=== PATIENT | male | born 1985 | race Caucasian/White ===

== ENCOUNTER 2016-10-20 19:17 | Emergency (ER) | payer SELFPAY ==
[~2016-10-20] VITALS: Ht 180.3 cm; Wt 96.4 kg
[~2016-10-20 19:17] MED LIST: IBUP800T23 PO; PERC5TAB12 PO; TAMS0.4C67 PO
[2016-10-20 19:28] VITALS: BP 135/77; PULSE 93; RESP 16; TEMP 98.9; O2SAT 98
[2016-10-20] MEDS ORDERED: SODIUM CHLORIDE 0.9% FLUSH 10 ML FLUSH IV FLUSH PRN (20:45)
[2016-10-20] MEDS ORDERED: KETOROLAC TROMETHAMINE 30 MG/ML (IVP) VIAL IV PUSH ONE (20:45)
--- NOTE | 2016-10-20 20:49 | PD ---
HPI Chief Complaint: Musculoskeletal Complaint Time Seen by Provider: 20:36 Travel History International Travel<30 days: No Contact w/Intl Traveler<30days: No Traveled to known affect area: No History of Present Illness HPI 31-year-old male here for evaluation of left neck pain and left arm numbness. The patient reports that the symptoms have been going on for the last week. He states he was seen at an outpatient urgent care facility and was prescribed a muscle relaxer, however he has not had any relief of symptoms. He denies any known trauma. 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 He denies left upper extremity weakness or loss of strength. No fevers or chills. No IVDU. Patient also mentioned that over the last week he has had 3 syncopal episodes. 2 of these episodes occurred while at work, and one while driving. He states that these episodes are preceded by a prodrome of nausea, blurry vision, and tunnel vision. He has no known history of cardiac disease. He states his father may have a cardiac history, but he is unsure what it is. PFSH Past Medical History Hx Anticoagulant Therapy: No Cardiovascular Problems: No Chemotherapy: No Cerebrovascular Accident: No Diabetes: No Diminished Hearing: No Kidney Stones: Yes Respiratory: No Immunizations Current: No Past Surgical History Hysterectomy: No Social History Alcohol Use: Yes (SOCIALLY) Tobacco Use: Yes (1PPD) Substance Use: No Allergies-Medications (Allergen,Severity, Reaction): Coded Allergies: No Known Allergies (Unverified , 10/20/16) Reported Meds & Prescriptions Reported Meds & Active Scripts Active Review of Systems Except as stated in HPI: all other systems reviewed are Neg Physical Exam Narrative GENERAL: Well-developed, well-nourished, comfortable, no apparent distress. SKIN: Focused skin assessment warm/dry. No rash. HEAD: Atraumatic. Normocephalic. EYES: Pupils equal and round. No scleral icterus. No injection or drainage. ENT: Mucous membranes pink and moist. NECK: Trachea midline. No JVD. No midline cervical spine step-off or tenderness. There is mild to moderate left lateral neck tenderness without obvious masses. Normal range of motion in the patient's neck. CARDIOVASCULAR: Regular rate and rhythm. Distal pulses brisk and equal bilaterally. RESPIRATORY: No accessory muscle use. Clear to auscultation. Breath sounds equal bilaterally. GASTROINTESTINAL: Abdomen soft, non-tender, nondistended. MUSCULOSKELETAL: No obvious deformities. No clubbing. No cyanosis. No edema. NEUROLOGICAL: Awake and alert. No obvious cranial nerve deficits. Motor grossly within normal limits. Normal speech. Normal strength in all 4 extremities. 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 No focal deficits. PSYCHIATRIC: Appropriate mood and affect; insight and judgment normal. Data Data Last Documented VS Vital Signs Date Time Temp Pulse Resp B/P Pulse Ox O2 Delivery O2 Flow Rate FiO2 10/20/16 21:24 78 16 139/73 99 10/20/16 19:28 98.9 Orders Complete Blood Count With Diff (10/20/16 20:43) Comprehensive Metabolic Panel (10/20/16 20:43) Prothrombin Time / Inr (Pt) (10/20/16 20:43) Act Partial Throm Time (Ptt) (10/20/16 20:43) Iv Access Insert/Monitor (10/20/16 20:43) Ecg Monitoring (10/20/16 20:43) Oximetry (10/20/16 20:43) Sodium Chloride 0.9% Flush (Ns Flush) (10/20/16 20:45) Electrocardiogram (10/20/16 20:43) Ct Cerv Spine W/O Contrast (10/20/16 ) Ketorolac Inj (Toradol Inj) (10/20/16 20:45) Ckmb (Isoenzyme) Profile (10/20/16 20:43) Troponin I (10/20/16 20:43) Ct Brain W/O Iv Contrast(Rout) (10/20/16 ) CKMB (10/20/16 21:00) CKMB% (10/20/16 21:00) Labs Laboratory Tests Test 10/20/16 21:00 White Blood Count 12.9 TH/MM3 Red Blood Count 5.53 MIL/MM3 Hemoglobin 16.8 GM/DL Hematocrit 50.0 % Mean Corpuscular Volume 90.5 FL Mean Corpuscular Hemoglobin 30.3 PG Mean Corpuscular Hemoglobin 33.5 % Concent Red Cell Distribution Width 11.8 % Platelet Count 322 TH/MM3 Mean Platelet Volume 7.9 FL Neutrophils (%) (Auto) 61.3 % Lymphocytes (%) (Auto) 26.8 % Monocytes (%) (Auto) 8.3 % Eosinophils (%) (Auto) 2.7 % Basophils (%) (Auto) 0.9 % Neutrophils # (Auto) 8.0 TH/MM3 Lymphocytes # (Auto) 3.4 TH/MM3 Monocytes # (Auto) 1.1 TH/MM3 Eosinophils # (Auto) 0.3 TH/MM3 Basophils # (Auto) 0.1 TH/MM3 CBC Comment DIFF FINAL Differential Comment Prothrombin Time 10.8 SEC Prothromb Time International 1.0 RATIO Ratio Activated Partial 27.5 SEC Thromboplast Time Sodium Level 141 MEQ/L Potassium Level 4.0 MEQ/L Chloride Level 107 MEQ/L Carbon Dioxide Level 26.9 MEQ/L Anion Gap 7 MEQ/L Blood Urea Nitrogen 23 MG/DL Creatinine 1.30 MG/DL Estimat Glomerular Filtration 65 ML/MIN Rate Random Glucose 100 MG/DL Calcium Level 9.1 MG/DL Total Bilirubin 0.2 MG/DL Aspartate Amino Transf 19 U/L (AST/SGOT) Alanine Aminotransferase 27 U/L (ALT/SGPT) Alkaline Phosphatase 98 U/L Total Creatine Kinase 178 U/L Creatine Kinase MB 1.4 NG/ML Troponin I 0.02 NG/ML Total Protein 7.6 GM/DL Albumin 3.9 GM/DL [facility] Medical Decision Making Medical Screen Exam Complete: Yes Emergency Medical Condition: Yes Differential Diagnosis Radiculopathy, herniated disc, syncope/vasovagal syncope, dysrhythmia, anabolic abnormality, anemia, epidural abscess unlikely, cord compression unlikely Narrative Course Vital signs show heart rate 78, blood pressure 139/73, pulse ox 99% on room air , oral temp of 98.9F. CBC shows WBC 12.9, hemoglobin 16.8, hematocrit 50, platelets 322 CMP is unremarkable. Cardiac enzymes are negative. CT head: Normal exam. CT cervical spine: CONCLUSION: 1. No fracture or subluxation. 2. Minimal right-sided posterior disc osteophyte complex at C5-6 without canal stenosis. Patient made aware of all findings. He is resting comfortably. He is still having some numbness down his left arm which she mainly points to the posterior forearm and upper arm where he feels his numbness. There is no perceivable weakness in the left upper extremity. Patient does work in construction, and may have aggravated the brachial plexus on that side. He denies illicit drugs or IVDU. As far as his syncopal episodes are concerned, they sound vasovagal. At this point my plan is to start the patient on prednisone. He has muscle relaxants at home. I will also give him tramadol to help with his neck pain at night. He is stable for discharge home with outpatient follow-up. Patient informed on when to return to the emergency department. He verbalizes understanding and agreement with plan. Diagnosis Primary Impression: Radiculopathy Qualified Code: M54.12 - Cervical radiculopathy Additional Impressions: Neck pain Syncope Qualified Code: R55 - Syncope, unspecified syncope type Referrals: Primary Care Physician 3 days Additional Instructions: Follow-up with a primary care physician this week. Return to the emergency department for worsening symptoms or any other concerns. Scripts Prednisone 50 Mg Tab50 Mg PO DAILY 5 Days Ref 0 Prov:Pablo Donald MD 10/20/16 Tramadol 50 Mg Tab50 Mg PO Q6H PRN (PAIN) #15 TAB Ref 0 Prov:Pablo Donald MD 10/20/16 Disposition: 01 DISCHARGE HOME Condition: Stable Pablo Donald MD Oct 20, 2016 20:49
[2016-10-20 21:12] LABS: BASOPHIL # 0.1 TH/MM3 (0-0.2); BASOPHIL % 0.9 % (0.0-2.0); EOSINOPHIL # 0.3 TH/MM3 (0-0.4); EOSINOPHIL % 2.7 % (0.0-4.0); HEMO FLAGS DIFF FINAL; LYMPH % 26.8 % (9.0-44.0); LYMPHOCYTE # 3.4 TH/MM3 (1.0-4.8); MEAN CELL VOLUME 90.5 FL (80.0-100.0); MEAN CORPUSCULAR HEMOGLOBIN 30.3 PG (27.0-34.0); MEAN CORPUSCULAR HGB CONC 33.5 % (32.0-36.0); MONO % 8.3 % (0.0-8.0); NEUT % 61.3 % (16.0-70.0); PLATELET COUNT 322 TH/MM3 (150-450); RED BLOOD COUNT 5.53 MIL/MM3 (4.50-5.90); RED CELL DISTRIBUTION WIDTH 11.8 % (11.6-17.2); WHITE BLOOD COUNT 12.9 TH/MM3 (4.0-11.0)
[2016-10-20 21:24] VITALS: BP 139/73; PULSE 78; RESP 16; O2SAT 99
[2016-10-20 21:24] LABS: CHLORIDE 107 MEQ/L (98-107); SODIUM (NA) 141 MEQ/L (136-145)
[2016-10-20 21:29] LABS: ANION GAP 7 MEQ/L (5-15); BICARBONATE 26.9 MEQ/L (21.0-32.0); BLOOD UREA NITROGEN 23 MG/DL (7-18)
[2016-10-20 21:31] LABS: ALT (GPT) 27 U/L (12-78)
[2016-10-20 21:32] LABS: AST (GOT) 19 U/L (15-37); GLOMERULAR FILTRATION RATE 65 ML/MIN (>89)
[2016-10-20 21:33] LABS: TOTAL BILIRUBIN ADULT 0.2 MG/DL (0.2-1.0)
[2016-10-20 21:34] LABS: CREATINE KINASE 178 U/L (39-308)
[2016-10-20 21:35] LABS: ALKALINE PHOSPHATASE 98 U/L (45-117)
[2016-10-20 21:39] LABS: APTT (PATIENT) 27.5 SEC (24.3-30.1); PROTHROMBIN TIME - PATIENT 10.8 SEC (9.8-11.6)
[2016-10-20 21:47] LABS: CKMB 1.4 NG/ML (0.5-3.6)
--- NOTE | 2016-10-20 21:50 | RADRPT ---
EXAM DATE/TIME: 10/20/2016 21:10 [facility] COMPARISON: No previous studies available for comparison. INDICATIONS : Weakness. Left neck pain. Left upper extremity numbness. RADIATION DOSE: 62.97 CTDIvol (mGy) MEDICAL HISTORY : None SURGICAL HISTORY : None. ENCOUNTER: Initial ACUITY: 3 weeks PAIN SCALE: 5/10 LOCATION: Left neck upper extremity. TECHNIQUE: Multiple contiguous axial images were obtained of the head. Using automated exposure control and adj ustment of the mA and/or kV according to patient size, radiation dose was kept as low as reasonably a chievable to obtain optimal diagnostic quality images. DICOM format image data is available electro nically for review and comparison. FINDINGS: CEREBRUM: The ventricles are normal for age. No evidence of midline shift, mass lesion, hemorrhage or acute in farction. No extra-axial fluid collections are seen. POSTERIOR FOSSA: The cerebellum and brainstem are intact. The 4th ventricle is midline. The cerebellopontine angle i s unremarkable. EXTRACRANIAL: The visualized portion of the orbits is intact. SKULL: The calvaria is intact. No evidence of skull fracture. CONCLUSION: Normal examination. Jossue Cheng MD on October 20, 2016 at 21:48 Board Certified Radiologist. This report was verified electronically.
--- NOTE | 2016-10-20 21:55 | RADRPT ---
EXAM DATE/TIME: 10/20/2016 21:10 [facility] COMPARISON: No previous studies available for comparison. INDICATIONS : Weakness. Left neck pain. Left upper extremity numbness. RADIATION DOSE: 26.69 CTDIvol (mGy) MEDICAL HISTORY : None SURGICAL HISTORY : None. ENCOUNTER: Initial ACUITY: 3 weeks PAIN SCALE: 5/10 LOCATION: Left neck TECHNIQUE: Volumetric scanning of the cervical spine was performed. Multiplanar reconstructions in the sagittal, coronal and oblique axial planes were performed. Using automated exposure control and adjustment o f the mA and/or kV according to patient size, radiation dose was kept as low as reasonably achievable to obtain optimal diagnostic quality images. DICOM format image data is available electronically f or review and comparison. FINDINGS: VERTEBRAE: Normal vertebral body height. ALIGNMENT: No evidence of subluxation. C2-C3: The bony spinal canal is normal in size. No evidence of disc bulge or herniation. The neural forami na are bilaterally patent. C3-C4: The bony spinal canal is normal in size. No evidence of disc bulge or herniation. The neural forami na are bilaterally patent. C4-C5: The bony spinal canal is normal in size. No evidence of disc bulge or herniation. The neural forami na are bilaterally patent. C5-C6: Minimal posterior disc osteophyte complex minimal right. No canal stenosis. The neural foramina are bilaterally patent. C6-C7: The bony spinal canal is normal in size. No evidence of disc bulge or herniation. The neural forami na are bilaterally patent. C7-T1: The bony spinal canal is normal in size. No evidence of disc bulge or herniation. The neural forami na are bilaterally patent. CONCLUSION: 1. No fracture or subluxation. 2. Minimal right-sided posterior disc osteophyte complex at C5-6 without canal stenosis. Jossue Cheng MD on October 20, 2016 at 21:51 Board Certified Radiologist. This report was verified electronically.
[2016-10-20] MEDS ORDERED: TRAM50TA PO (22:15)
[2016-10-20] MEDS ORDERED: PRED50 PO (22:15)
[2016-10-20] MEDS ORDERED: predniSONE 50 MG TAB PO ONE (22:30)
[2016-10-20 23:05] VITALS: BP 142/76
--- NOTE | 2016-10-21 11:51 | EKG ---
Date Performed: 10/20/2016 Time Performed: 20:50:28 PTAGE: 31 years EKG: Sinus rhythm INCOMPLETE RIGHT BUNDLE BRANCH BLOCK NONSPECIFIC T-WAVE ABNORMALITY BORDERLINE ECG NO PREVIOUS TRACING DOCTOR: Nilson Henson Interpretating Date/Time 10/21/2016 11:48:18
== END 2016-10-20 23:07 | disposition home or self-care (01) ==
LOC: PHED 19:17
DX: M54.12 Radiculopathy, cervical region (principal); R55 Syncope and collapse; F17.200 Nicotine dependence, unspecified, uncomplicated
CPT/HCPCS: 70450; 72125; 80053; 82550; 82552; 84484; 85025; 85610; 85730; 93005; 96374; 99285; J1885; J7512

== ENCOUNTER 2016-12-23 06:07 | Emergency (ER) | payer OTHER ==
[~2016-12-23] VITALS: Ht 180.3 cm; Wt 92.5 kg
[~2016-12-23 06:07] MED LIST changes: -IBUP800T23 PO; -PERC5TAB12 PO; +PRED50 PO; -TAMS0.4C67 PO; +TRAM50TA PO
[2016-12-23 06:13] VITALS: BP 139/71; PULSE 90; RESP 16; TEMP 97.8; O2SAT 96
[2016-12-23 06:32] VITALS: BP 139/71; PULSE 90; RESP 18; TEMP 97.8; O2SAT 98
[2016-12-23] MEDS ORDERED: IBUP800T23 PO (06:37)
--- NOTE | 2016-12-23 06:41 | PD ---
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 He complains of persistent pain when he bears weight with the Achilles tendon. He can walk, it just hurts when he uses it. He works for 12 hours yesterday and the pain is severe now when he bears weight. He denies any fever. The patient is not taking any medications at home currently.. PFSH Past Medical History Hx Anticoagulant Therapy: No Cardiovascular Problems: No Chemotherapy: No Cerebrovascular Accident: No Diabetes: No Diminished Hearing: No Kidney Stones: Yes Respiratory: No Immunizations Current: No Past Surgical History Hysterectomy: No Social History Alcohol Use: Yes (SOCIALLY) Tobacco Use: Yes (1PPD) Substance Use: No Allergies-Medications (Allergen,Severity, Reaction): Coded Allergies: No Known Allergies (Unverified , 10/20/16) Reported Meds & Prescriptions Reported Meds & Active Scripts Active Prednisone 50 Mg Tab 50 Mg PO DAILY 5 Days Tramadol (Tramadol HCl) 50 Mg Tab 50 Mg PO Q6H PRN Review of Systems Except as stated in HPI: all other systems reviewed are Neg Physical Exam Narrative GENERAL: The patient is alert, oriented 3 in moderate apparent distress with his left Achilles tendon pain. His vital signs are normal. SKIN: Focused skin assessment warm/dry. There is minimal swelling but no erythema or bruising around the left Achilles tendon. No defect is felt around the Achilles tendon although the Achilles tendon is very tender. No fluctuance is present. HEAD: Atraumatic. Normocephalic. EYES: Pupils equal and round. No scleral icterus. No injection or drainage. ENT: No nasal bleeding or discharge. Mucous membranes pink and moist. NECK: Trachea midline. No JVD. CARDIOVASCULAR: Regular rate and rhythm. No murmur appreciated. RESPIRATORY: No accessory muscle use. Clear to auscultation. Breath sounds equal bilaterally. GASTROINTESTINAL: Abdomen soft, non-tender, nondistended. Hepatic and splenic margins not palpable. MUSCULOSKELETAL: No obvious deformities. No clubbing. No cyanosis. No edema. The Reynoso test shows good Achilles tendon function bilaterally. The calcaneus shows no deformity or tenderness at the attachment of the Achilles tendon. The pain and tenderness is about 2 cm proximal to the insertion on the calcaneus. NEUROLOGICAL: Awake and alert. No obvious cranial nerve deficits. Motor grossly within normal limits. Normal speech. PSYCHIATRIC: Appropriate mood and affect; insight and judgment normal. Data Data Last Documented VS Vital Signs Date Time Temp Pulse Resp B/P (MAP) Pulse Ox O2 Delivery O2 Flow Rate FiO2 12/23/16 06:13 97.8 90 16 139/71 (93) 96 MDM Medical Decision Making Medical Screen Exam Complete: Yes Emergency Medical Condition: Yes Medical Record Reviewed: Yes Differential Diagnosis Achilles tendon rupture-unlikely, contusion Achilles tendon, fractured calcaneus Narrative Course The patient has a contusion on the Achilles tendon. Working 12 hours yesterday definitely inflamed this. Plan: The patient be given a work excuse and Motrin, 800 mg 3 times daily. Physician Communication Physician Communication Take the Motrin 800 mg 3 times a day and rest. Try not to put any weight on the Achilles tendon. It should get better within a week, if not follow-up with orthopedics. Diagnosis Primary Impression: Achilles tendon pain Additional Instructions: Try as best you can to take all the weight off your left foot. Normally this should heal up in about a week if you can rest at properly. The ibuprofen is taken one tablet 3 times daily. Follow-up with an orthopedic physician if not better in 7 days. Med/Other Pt SpecificInfo: Prescription(s) given Scripts Ibuprofen (Ibuprofen) 800 Mg Tab 800 MG PO TID, #33 TAB 0 Refills Prov: Mian Johnson MD 12/23/16 Disposition: 01 DISCHARGE HOME Condition: Stable Mian Johnson MD Dec 23, 2016 06:41
[2016-12-23 07:08] VITALS: BP 143/66
== END 2016-12-23 07:12 | disposition home or self-care (01) ==
LOC: PHED 06:07
DX: M79.672 Pain in left foot (principal); S90.32XA Contusion of left foot, initial encounter; F17.200 Nicotine dependence, unspecified, uncomplicated; Z87.442 Personal history of urinary calculi; W20.8XXA Other cause of strike by thrown, projected or falling object, initial encounter; Y99.0 Civilian activity done for income or pay
CPT/HCPCS: 99283; E0113